=== PATIENT | female | born 1955 | race Caucasian/White ===

== ENCOUNTER 2023-03-07 12:13 | Emergency (ER) | payer BC ==
[~2023-03-07] VITALS: Ht 167.6 cm; Wt 59.0 kg
[2023-03-07 12:23] VITALS: BP_SYST 135; PULSE 85; RESP 18; TEMP 98.1; O2SAT 99
[2023-03-07 12:49] LABS: BASOPHILS % (AUTO) 0.6 % (0.0-2.0); EOSINOPHILS % (AUTO) 0.9 % (0.0-4.0); HEMATOCRIT 45.9 % (36-48); HEMOGLOBIN 14.7 g/dL (12.0-16.0); LYMPHOCYTES # (AUTO) 1.5 K/uL (1.0-5.5); LYMPHOCYTES % (AUTO) 29.7 % (20.5-51.5); MEAN CORPUSCULAR HEMOGLOBIN 28 pg (27-31); MEAN CORPUSCULAR HGB CONC 32 % (32-36); MEAN CORPUSCULAR VOLUME 88 fL (79.0-98.0); MONOCYTES # (AUTO) 0.4 K/uL (0.0-1.0); MONOCYTES % (AUTO) 8.8 % (1.7-9.3); PLATELET COUNT (AUTO) 164 K/uL (130-430); RED BLOOD CELL COUNT(AUTO) 5.21 MIL/uL (4.2-6.2); RED CELL DISTRIBUTION WIDTH 13.3 % (9.0-15.0); WHITE BLOOD COUNT (AUTO) 4.9 K/uL (4.8-10.8)
[2023-03-07 13:09] LABS: CALCIUM 9.6 mg/dL (8.4-11.0); CREATININE 0.91 mg/dL (0.55-1.30); POTASSIUM 4.6 mmol/L (3.5-5.1)
[2023-03-07 13:12] LABS: INFLUENZA TYPE A negative (NEGATIVE); INFLUENZA TYPE B NEGATIVE (NEGATIVE)
[2023-03-07 13:13] LABS: PROTHROMBIN TIME 10.4 SECS (9.5-12.5)
[2023-03-07 13:14] LABS: ALBUMIN 3.8 g/dL (3.4-4.8); TOTAL BILIRUBIN 0.6 mg/dL (0.0-1.0); TOTAL PROTEIN, SERUM 6.7 g/dL (6.4-8.3)
[2023-03-07] MEDS ORDERED: CEPH250C PO (13:48)
[2023-03-07] MEDS ORDERED: PSEU30TA36 PO (13:48)
[2023-03-07 14:24] VITALS: BP_SYST 135; PULSE 85; RESP 18; TEMP 98.1; O2SAT 99
== END 2023-03-07 14:15 | disposition home or self-care (01) ==
LOC: SED 12:13
DX: J32.9 Chronic sinusitis, unspecified (principal); R09.81 Nasal congestion; R05.9 Cough, unspecified; Z79.899 Other long term (current) drug therapy; Z20.822 Contact with and (suspected) exposure to COVID-19
CPT/HCPCS: 36415; 71045; 80053; 85025; 85610-TC; 85730-TC; 99284